=== PATIENT | male | born 1980 | race Asian ===

== ENCOUNTER 2019-09-27 22:24 | Emergency (ER) | payer SELFPAY ==
[2019-09-28] MEDS ORDERED: predniSONE 50 MG TAB PO ONE (04:39)
[2019-09-28] MEDS ORDERED: ACETAMINOPHEN 500 MG TAB PO ONE (04:39)
--- NOTE | 2019-09-28 05:07 | XRay Report ---
Right RIBS with PA chest, 3 views INDICATION: Right-sided chest pain and pleurisy FINDINGS: The ribs are intact with no fracture or bone lesion seen. However right pleural effusion is seen and there is possible air-fluid level in the right pleural space suggesting a hydropneumothorax . This is not definite however. There is no underlying lung consolidation and again no rib abnormalit y. Suggest chest CT to exclude any hydropneumothorax on the right. Signer Name: Jeo Courtney MD Signed: 09/28/2019 5:02 AM Workstation Name: [id number]
[2019-09-28 05:53] LABS: Hemoglobin 12.3 gm/dl (11.8-15.2)
[2019-09-28 06:02] LABS: INR 1.09 (0.87-1.13)
[2019-09-28 06:08] LABS: BUN/Creatinine Ratio 8; Blood Urea Nitrogen 6 mg/dL (9-20); Calcium 9.7 mg/dL (8.4-10.2); Hemolysis Index 14
[2019-09-28 06:09] LABS: Hematocrit 38.3 % (35.5-45.6); Mean Corpuscular HGB Conc 34 % (32-34); Mean Corpuscular Volume 83 fl (84-94); Platelet Count 369 K/mm3 (140-440); Red Cell Distribution Width 12.3 % (13.2-15.2)
--- NOTE | 2019-09-28 06:09 | Cat Scan Report ---
CT of the chest without contrast INDICATION: Right-sided chest pain, abnormal chest x-ray COMPARISON: None FINDINGS: There is no hilar or mediastinal adenopathy. No vascular calcification or aneurysm. There i s no left pleural or pericardial effusion. Upper abdomen is unremarkable. The CT does confirm a small right pleural effusion but there is no pneumothorax present. There is also small amount of right low er lobe consolidation. Bone windows do not demonstrate any rib fracture or right rib abnormality. IMPRESSION: There is a small amount of right lower lobe consolidation and a right pleural effusion bu t there is no pneumothorax or right rib fracture. Automated exposure control was utilized to diminish radiation dose. Signer Name: Joe Courtney MD Signed: 09/28/2019 6:05 AM Workstation Name: [id number]
[2019-09-28] MEDS ORDERED: levoFLOXacin 750 MG TAB PO ONE (06:47)
--- NOTE | 2019-09-28 06:52 | Emergency Department Report ---
ED General Adult HPI - General Chief complaint: Upper Respiratory Infection Stated complaint: DIFF BREATHING Time Seen by Provider: 09/28/19 06:39 Source: patient Mode of arrival: Ambulatory Limitations: No Limitations - History of Present Illness Initial comments: Patient presents to the emergency department the chief complaint of a cough. Patient states that his child initially became sick and had a cough and then his developed the same symptoms which were passed along to him last week. Patient dates initially because start office dry and then became productive over the weekend. Patient does endorse using a vape pen on Friday but has since thrown away. Patient denies any corey chest pain, abdominal pain, or headache. Patient does endorse having some chest pain with cough but otherwise patient has no chest pain. Patient denies any recent travel shortness of breath -: Gradual Radiation: non-radiation Severity scale (0 -10): 1 Quality: aching Consistency: constant Improves with: none Worsens with: none Associated Symptoms: denies other symptoms Treatments Prior to Arrival: none - Related Data Previous Rx's Medication Instructions Recorded Last Taken Type Albuterol INH(or & Nicu Only) 2 puff IH Q4HR PRN #1 inhalation 09/28/19 Unknown Rx [ProAir HFA Inhaler] Benzonatate [Tessalon Perles] 100 mg PO Q8HR PRN #20 capsule 09/28/19 Unknown Rx levoFLOXacin [Levaquin] 750 mg PO QDAY #7 tablet 09/28/19 Unknown Rx Allergies Allergy/AdvReac Type Severity Reaction Status Date / Time aspirin Allergy Unknown Verified 09/27/19 22:56 Sulfa (Sulfonamide Allergy Shortness Verified 09/27/19 22:56 Antibiotics) of Breath ED Review of Systems ROS: Stated complaint: DIFF BREATHING Other details as noted in HPI Constitutional: denies: chills, fever Eyes: denies: eye pain, eye discharge, vision change ENT: denies: ear pain, throat pain Respiratory: cough. denies: shortness of breath, wheezing Cardiovascular: denies: chest pain, palpitations Endocrine: no symptoms reported Gastrointestinal: denies: abdominal pain, nausea, diarrhea Genitourinary: denies: urgency, dysuria Musculoskeletal: denies: back pain, joint swelling, arthralgia Skin: denies: rash, lesions Neurological: denies: headache, weakness, paresthesias Psychiatric: denies: anxiety, depression Hematological/Lymphatic: denies: easy bleeding, easy bruising ED Past Medical Hx - Past Medical History Previous Medical History?: Yes Additional medical history: G6 PD - Surgical History Past Surgical History?: No - Social History Smoking Status: Never Smoker Substance Use Type: Marijuana - Medications Home Medications: Home Medications Medication Instructions Recorded Confirmed Last Taken Type Albuterol INH(or & Nicu Only) 2 puff IH Q4HR PRN #1 inhalation 09/28/19 Unknown Rx [ProAir HFA Inhaler] Benzonatate [Tessalon Perles] 100 mg PO Q8HR PRN #20 capsule 09/28/19 Unknown Rx levoFLOXacin [Levaquin] 750 mg PO QDAY #7 tablet 09/28/19 Unknown Rx ED Physical Exam - General Limitations: No Limitations General appearance: alert, in no apparent distress - Head Head exam: Present: atraumatic, normocephalic - Eye Eye exam: Present: normal appearance, PERRL, EOMI - ENT ENT exam: Present: mucous membranes moist - Neck Neck exam: Present: normal inspection - Respiratory Respiratory exam: Present: normal lung sounds bilaterally, decreased breath sounds (right side ). Absent: respiratory distress - Cardiovascular Cardiovascular Exam: Present: regular rate, normal rhythm. Absent: systolic murmur, diastolic murmur, rubs, gallop - GI/Abdominal GI/Abdominal exam: Present: soft, normal bowel sounds. Absent: distended, tenderness - Rectal Rectal exam: Present: deferred - Extremities Exam Extremities exam: Present: normal inspection - Back Exam Back exam: Present: normal inspection - Neurological Exam Neurological exam: Present: alert, oriented X3, CN II-XII intact. Absent: motor sensory deficit - Psychiatric Psychiatric exam: Present: normal affect, normal mood - Skin Skin exam: Present: warm, dry, intact, normal color. Absent: rash ED Course Vital Signs 09/27/19 09/28/19 09/28/19 23:01 02:22 05:52 Temperature 98.6 F 98.1 F 98.1 F Pulse Rate 75 64 56 L Respiratory 18 16 16 Rate Blood Pressure 130/48 117/75 Blood Pressure 127/72 [Right] O2 Sat by Pulse 98 100 100 Oximetry ED Medical Decision Making - Lab Data Result diagrams: 09/28/19 05:41 09/28/19 05:41 Lab Results 03/10/1409/28/19 09/28/19 Range/Units 05:41 05:41 05:41 WBC 11.3 H (4.5-11.0) K/mm3 RBC 4.60 (3.65-5.03) M/mm3 Hgb 12.3 (11.8-15.2) gm/dl Hct 38.3 (35.5-45.6) % MCV 83 L (84-94) fl MCH 28 (28-32) pg MCHC 34 (32-34) % RDW 12.3 L (13.2-15.2) % Plt Count 369 (140-440) K/mm3 PT 14.2 (12.2-14.9) Sec. INR 1.09 (0.87-1.13) Sodium 140 (137-145) mmol/L Potassium 4.4 (3.6-5.0) mmol/L Chloride 101.1 (98-107) mmol/L Carbon Dioxide 27 (22-30) mmol/L Anion Gap 16 mmol/L BUN 6 L (9-20) mg/dL Creatinine 0.8 (0.8-1.5) mg/dL Estimated GFR > 60 ml/min BUN/Creatinine Ratio 8 % Glucose 106 H (75-100) mg/dL Calcium 9.7 (8.4-10.2) mg/dL Magnesium 2.40 H (1.7-2.3) mg/dL Total Creatine Kinase 102 (55-170) units/L - Radiology Data Radiology results: report reviewed - Medical Decision Making CT of the chest was obtained due to the patient having abnormal finding on chest x-ray where there was concern of a possible pneumothorax Critical care attestation.: If time is entered above; I have spent that time in minutes in the direct care of this critically ill patient, excluding procedure time. ED Disposition Clinical Impression: Lung consolidation, Pneumonia Disposition: - TO HOME OR SELFCARE Is pt being admited?: No Does the pt Need Aspirin: No Condition: Stable Instructions: Bacterial Pneumonia (ED) Additional Instructions: return if worse Referrals: PRIMARY CARE, [Primary Care Provider] - 3-5 Days LISA RETANA MD [Staff Physician] - 3-5 Days [facility], [Provider Group] - 3-5 Days [facility] [Provider Group] - 3-5 Days Forms: Work/School Release Form(ED) Time of Disposition: 06:51
[2019-09-28 06:55] VITALS: BP 129/77
== END 2019-09-28 07:07 | disposition home or self-care (01) ==
LOC: ED 22:24
DX: J18.9 Pneumonia, unspecified organism (principal); J18.1 Lobar pneumonia, unspecified organism; F12.10 Cannabis abuse, uncomplicated
CPT/HCPCS: 36415; 71101; 71250; 80048; 82550; 83735; 85027; 85610; 99285; J7512